=== PATIENT | female | born 1995 | race Caucasian/White ===

== ENCOUNTER 2016-03-30 08:55 | Emergency (ER) | payer OTHER ==
[~2016-03-30] VITALS: Ht 154.9 cm; Wt 43.0 kg
[~2016-03-30 08:55] MED LIST: BACT800T5 PO; NORE1TAB58 PO; ZOFR4TAB3 SL
[2016-03-30 09:10] VITALS: BP 111/76; PULSE 83; RESP 16; TEMP 98.8; O2SAT 99
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
== END 2016-03-30 09:46 | disposition home or self-care (01) ==
LOC: PHEFT 08:55
DX: J06.9 Acute upper respiratory infection, unspecified (principal); R05 Cough; B34.9 Viral infection, unspecified
CPT/HCPCS: 99283

== ENCOUNTER 2016-04-15 15:32 | Emergency (ER) | payer OTHER ==
[~2016-04-15] VITALS: Ht 154.9 cm; Wt 44.4 kg
[~2016-04-15 15:32] MED LIST changes: -BACT800T5 PO; -ZOFR4TAB3 SL
[2016-04-15 15:53] VITALS: BP 97/66; PULSE 93; RESP 16; TEMP 98.2; O2SAT 100
[2016-04-15] MEDS ORDERED: ROBA500T PO (16:23)
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
== END 2016-04-15 16:45 | disposition home or self-care (01) ==
LOC: PHEFT 15:32
DX: S16.1XXA Strain of muscle, fascia and tendon at neck level, initial encounter (principal); Z87.19 Personal history of other diseases of the digestive system; V89.2XXA Person injured in unspecified motor-vehicle accident, traffic, initial encounter; Y92.410 Unspecified street and highway as the place of occurrence of the external cause
CPT/HCPCS: 99283

== ENCOUNTER 2016-05-29 09:31 | Emergency (ER) | payer OTHER ==
[~2016-05-29] VITALS: Ht 152.4 cm; Wt 44.1 kg
[~2016-05-29 09:31] MED LIST changes: +ROBA500T PO
[2016-05-29 09:36] VITALS: BP 112/73; PULSE 73; RESP 16; TEMP 97.6; O2SAT 100
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
== END 2016-05-29 10:46 | disposition home or self-care (01) ==
LOC: PHED 09:31
DX: R09.81 Nasal congestion (principal); K58.9 Irritable bowel syndrome, unspecified; K21.9 Gastro-esophageal reflux disease without esophagitis
CPT/HCPCS: 99283